=== PATIENT | male | born 1990 | race Caucasian/White ===

== ENCOUNTER 2021-05-25 10:03 | Emergency (ER) | payer BC ==
[~2021-05-25] VITALS: Ht 188 cm; Wt 95.3 kg
--- NOTE | 2021-05-25 10:38 | NUR ---
TO ER BED 7, WOKE UP THIS AM C/O "COUGHING W/ DARK BLOOD", [place], LAST DRINK 3 DAYS AGO, AAOX3, BREATHING EVEN AND NON LABORED, CONNECTED TO MONITOR, AWAITING MD HSUAIN
[2021-05-25] MEDS ORDERED: KETOROLAC TROMETHAMINE INJ 30 MG/ML VIAL IV ONE (11:00)
[2021-05-25] MEDS ORDERED: IV NS 0.9% 1,000 ML IV ONE (11:00)
--- NOTE | 2021-05-25 11:00 | NUR ---
SALINE LOCK ESTABLISHED, BLOOD DRAWN AND SENT TO LAB
[2021-05-25] MEDS ORDERED: KETOROLAC TROMETHAMINE 15 MG/ML VIAL ONE (11:06)
--- NOTE | 2021-05-25 11:38 | NUR ---
COVID ANTIGEN SWAB AND FLU SWAB DONE
[2021-05-25 11:44] LABS: BASOPHILS % (AUTO) 0.3 % (0.0-2.0); HEMATOCRIT 42 % (39-51); HEMOGLOBIN 13.9 g/dL (13.5-17.5); LYMPHOCYTES # (AUTO) 0.7 K/uL (0.8-4.8); LYMPHOCYTES % (AUTO) 7.2 % (20.0-44.0); MEAN CORPUSCULAR HGB CONC 33 g/dl (31.0-36.0); MEAN CORPUSCULAR VOLUME 90 fL (80-96); MONOCYTES # (AUTO) 0.7 K/uL (0.1-1.30); MONOCYTES % (AUTO) 7.1 % (2.0-12.0); NEUTROPHILS # (AUTO) 8.5 K/uL (1.8-8.9); NEUTROPHILS % (AUTO) 85.4 % (43.0-81.0); PLATELET COUNT (AUTO) 324 K/uL (150-450); RED BLOOD CELL COUNT(AUTO) 4.69 MIL/uL (4.5-6.0)
[2021-05-25 11:59] LABS: ALANINE AMINOTRANSFERASE 43 U/L (12-78); ALBUMIN 4.1 g/dL (3.4-5.0); ALKALINE PHOSPHATASE 102 U/L (46-116); ASPARTATE AMINOTRANSFERASE 26 U/L (15-37); BILIRUBIN,TOTAL 0.5 mg/dL (0.2-1.0); CALCIUM, SERUM 9.1 mg/dL (8.5-10.1); CARBON DIOXIDE 30 mmol/L (21-32); CHLORIDE 100 mmol/L (98-107); CREATININE 1.4 mg/dL (0.6-1.3); GLUCOSE 106 mg/dL (74-106); POTASSIUM 3.8 mmol/L (3.5-5.1); SODIUM SERUM 139 mmol/L (136-145); TOTAL PROTEIN, SERUM 7.7 g/dL (6.4-8.2); UREA NITROGEN, BLOOD 12 mg/dL (7-18)
[2021-05-25] MEDS ORDERED: GUAIFENESIN/D-METHORPHAN HB 5 ML UDC ONE (12:26)
[2021-05-25] MEDS ORDERED: GUAIFENESIN/D-METHORPHAN HB 5 ML UDC PO ONE (12:30)
[2021-05-25] MEDS ORDERED: IOHEXOL-350 100 ML VIAL IV ONE (12:36)
--- NOTE | 2021-05-25 12:50 | NUR ---
TAKEN TO CT
[2021-05-25] MEDS ORDERED: LEVO750T46 PO (13:47)
[2021-05-25] MEDS ORDERED: GUAI1TBM19 PO (13:47)
--- NOTE | 2021-05-25 13:53 | NUR ---
IV removed. Catheter intact and site benign. Pressure and 4x4 applied to site. No bleeding noted.Patient does not wish to proceed with medical care recommended by Dr. Manzano. Patient given information related to possible complications, up to and including , which could occur as a result of leaving the hospital at this time. Patient verbalizes understanding of risks involved due to leaving against medical advice. Patient has signed AMA form.
[2021-05-25 13:54] VITALS: BP 135/82
[2021-05-25] MEDS ORDERED: ZOLP10TA2 PO (14:09)
[2021-05-25 14:19] LABS: CREATINE KINASE, TOTAL 164 U/L (39-308)
== END 2021-05-25 13:54 | disposition home or self-care (01) ==
LOC: ER 10:05
DX: J18.9 Pneumonia, unspecified organism (principal); R04.2 Hemoptysis; Z20.822 Contact with and (suspected) exposure to COVID-19; R00.0 Tachycardia, unspecified; R79.1 Abnormal coagulation profile; F31.9 Bipolar disorder, unspecified; F41.1 Generalized anxiety disorder; Z87.01 Personal history of pneumonia (recurrent)
CPT/HCPCS: 36415; 71045; 71275; 80053; 82550; 83615; 84484; 85025; 85378; 87426; 87804; 96361; 96374; 99291; C9803; J1885; J7030; Q9967

== ENCOUNTER 2021-05-26 04:36 | Emergency (ER) | payer BC ==
[~2021-05-26] VITALS: Ht 188 cm; Wt 93.0 kg
[~2021-05-26 04:36] MED LIST: GUAI1TBM19 PO; LEVO750T46 PO; ZOLP10TA2 PO
[2021-05-26 04:52] VITALS: BP 141/89
== END 2021-05-26 05:07 | disposition home or self-care (01) ==
LOC: ER 04:38
DX: J18.9 Pneumonia, unspecified organism (principal); F41.9 Anxiety disorder, unspecified; F32.9 Major depressive disorder, single episode, unspecified; Z88.8 Allergy status to other drugs, medicaments and biological substances; Z79.899 Other long term (current) drug therapy

== ENCOUNTER 2021-08-19 17:04 | Emergency (ER) | payer BC ==
[~2021-08-19] VITALS: Ht 185.4 cm; Wt 90.7 kg
--- NOTE | 2021-08-19 18:10 | NUR ---
URINE COLLECTED AND SENT TO LAB
--- NOTE | 2021-08-19 18:17 | NUR ---
STOPPER SETTER AT BEDSIDE FOR BLOOD DRAW
--- NOTE | 2021-08-19 18:25 | NUR ---
REFUSED BLOOD DRAW
--- NOTE | 2021-08-19 18:25 | NUR ---
DAIRY SCIENTIST AT BEDSIDE
--- NOTE | 2021-08-19 18:33 | NUR ---
Patient discharged to home in stable condition. Written and verbal after care instructions given. Patient verbalizes understanding of instruction.
[2021-08-19 18:34] VITALS: BP 131/89
[2021-08-19 18:45] LABS: BILIRUBIN,URINE NEGATIVE (NEGATIVE); COLOR,URINE YELLOW (YELLOW); LEUKOCYTE ESTERASE ,URINE NEGATIVE (NEGATIVE); NITRITE, URINE NEGATIVE (NEGATIVE); PH,URINE 6.5 (5.0-8.0); PROTEIN,URINE NEGATIVE (NEGATIVE); UGLUCOSE NEGATIVE (NEGATIVE); UROBILINOGEN,URINE 0.2 EU/dL (0.2)
== END 2021-08-19 18:34 | disposition home or self-care (01) ==
LOC: ER 17:07
DX: F41.8 Other specified anxiety disorders (principal); R06.02 Shortness of breath; F32.9 Major depressive disorder, single episode, unspecified; Z87.19 Personal history of other diseases of the digestive system; Z88.8 Allergy status to other drugs, medicaments and biological substances; Z79.899 Other long term (current) drug therapy
CPT/HCPCS: 87086-TC; 87186-TC

== ENCOUNTER 2021-09-09 15:11 | Emergency (ER) | payer BC ==
[~2021-09-09] VITALS: Ht 185.4 cm; Wt 90.7 kg
[2021-09-09 15:43] VITALS: BP 138/89
[2021-09-09] MEDS ORDERED: GABA-536 PO (16:52)
[2021-09-09] MEDS ORDERED: PRED20TA PO (16:52)
== END 2021-09-09 17:00 | disposition home or self-care (01) ==
LOC: ER 15:15
DX: M79.675 Pain in left toe(s) (principal); R60.0 Localized edema; F41.9 Anxiety disorder, unspecified; F32.A Depression, unspecified; Z87.19 Personal history of other diseases of the digestive system; Z87.01 Personal history of pneumonia (recurrent); Z88.8 Allergy status to other drugs, medicaments and biological substances; Z79.899 Other long term (current) drug therapy